=== PATIENT | female | born 1960 | race Caucasian/White ===

== ENCOUNTER → 2020-01-29 | Outpatient (CLI) | payer BC | LOC: GMA MATASK 19:05 | PROVIDERS: ATTEND Family Medicine | DX: B18.2 Chronic viral hepatitis C (principal); R07.2 Precordial pain ==

== ENCOUNTER → 2020-03-10 | Outpatient (CLI) | payer BC | LOC: LAB.O 10:40 | PROVIDERS: ATTEND Internal Medicine Gastroenterology | DX: B18.2 Chronic viral hepatitis C (principal) ==

== ENCOUNTER → 2020-03-16 | Outpatient (CLI) | payer BC ==
--- NOTE | 2020-03-16 20:15 | US ---
EXAM DESCRIPTION: Abdomen,Complete: Ultrasound. CLINICAL HISTORY: 59 years FemaleCHRONIC VIRAL HEPATITIS C COMPARISON: None Available. TECHNIQUE: Transabdominal scanning: grayscale and Doppler modes. FINDINGS: Gallbladder: Minimally dilated. Heterogeneous internal echoes. No fluid around the gallbladder. Personable calcification 5.5 mm in the wall. No wall thickening-2.5 mm Non-tender with transducer pressure. Common bile duct: caliber 4.8 mm within normal limits. Liver: Heterogeneously increased echogenicity; contour liver capsule smooth where seen. No fluid around the liver. Intrahepatic biliary ducts normal caliber. Doppler hepatopedal flow and normal caliber portal vein 8.4 mm.. Long axis right lobe 17.2 cm. Pancreas: normal size and echogenicity. Duct not seen. Complete abdominal aorta: Normal caliber from the proximal segment to the distal bifurcation.. IVC: visualized and normal caliber. Right kidney: long axis measures 11 cm; volume 104.2 mm.. Echogenic cortex greater in the liver.. Thin cortex measuring 9 mm. Echogenic stones no hydronephrosis. Left kidney: long axis measures 10.4 cm; volume 104.8. Normal cortical echogenicity. Normal cortical thickness. No echogenic stones and no hydronephrosis. Spleen: Normal. No focal lesions.. 10 cm long axis. Other: None. IMPRESSION: 1. Minimally dilated gallbladder with heterogeneous internal echoes. Impacted 5.5 mm gallstone, versus wall calcification. No wall thickening elsewhere. No fluid. Nontender with transducer pressure. Common bile duct normal caliber. 2. Heterogeneous steatosis of the liver with mild enlargement. Normal caliber ducts and normal vascular flow. Smooth capsule with no ascites. Pancreas is negative. 3. Increased echogenicity in the right renal cortex greater than the liver with significant thinning. This could represent medical renal disease or focal renovascular disease. No echogenic stones or hydronephrosis bilaterally. Spleen is negative. Normal caliber of the great vessels of the abdomen. Electronically signed by: Roni Merritt MD 03/16/2020 8:13 PM CDT
== END ==
LOC: US 07:51
PROVIDERS: ATTEND Internal Medicine Gastroenterology
DX: B18.2 Chronic viral hepatitis C (principal); K80.20 Calculus of gallbladder without cholecystitis without obstruction; K76.0 Fatty (change of) liver, not elsewhere classified; N28.9 Disorder of kidney and ureter, unspecified